=== PATIENT | female | born 1945 | race Caucasian/White ===

== ENCOUNTER 2016-08-10 11:59 | Observation (INO) | payer OTHER ==
[~2016-08-10 11:59] MED LIST: D 5000 PO; ELIQUIS 5 MG TAB5 MG PO; GLUCPH PO; HORMONE CREAM; HYDROCHLOROT25 MG PO; LEVOTHYROXIN50 MCG PO; LOP25 PO; MELATIN PO; OSTEO BI-FLEX1 EACH PO; ULTRAM50 PO; VITAMIN B-121000 MC1 SL; ZANTAC150 MG PO; ZESTRIL10 MG PO
[2016-08-10] MEDS ORDERED: RYTHMOL150 MG PO (12:56)
[2016-08-10] MEDS ORDERED: LIPITOR20 PO (13:00)
[2016-08-10] MEDS ORDERED: PRIN10 PO (13:01)
[2016-08-10] MEDS ORDERED: HYDROCHLOROT25 MG PO (13:03)
[2016-08-10] MEDS ORDERED: PRILO PO (13:05)
[2016-08-10] MEDS ORDERED: NORCO1 TA1 PO (13:07)
[2016-08-10] MEDS ORDERED: ENDOMETRIN100 MG TOP (13:13)
[2016-08-11 04:48] LABS: BASOPHILS 0.3 %; BASOPHILS ABSOLUTE 0.03 10/3/uL (0.0-0.16); EOSINOPHILS 0.8 %; HEMATOCRIT 33.4 % (36.0-48.0); HEMOGLOBIN 10.6 g/dL (12.0-16.0); IMMATURE GRANULOCYTES 0.3 %; IMMATURE GRANULOCYTES ABSOLUTE 0.03 10/3/uL (0.0-0.11); LYMPHOCYTES 21.2 %; LYMPHOCYTES ABSOLUTE 2.54 10/3/uL (0.67-4.30); MEAN CORPUS HGB CONC 31.7 g/dL (32.0-36.0); MEAN CORPUSCULAR HEMOGLOB 24.2 pg (26.0-34.0); MEAN PLATELET VOLUME 10.5 fL (9.2-13.0); MONOCYTES ABSOLUTE 1.08 10/3/uL (0.21-1.20); NEUTROPHILS 68.4 %; NEUTROPHILS ABSOLUTE 8.21 10/3/uL (2.02-8.40); PLATELET COUNT 253 10/3/uL (150-400); RBC DISTRIBUTION WIDTH 18.4 % (12.0-16.0); RED CELL COUNT 4.38 10/6/uL (4.0-5.6)
[2016-08-11 04:49] LABS: MANUAL DIFF NO %; MEAN CORPUSCULAR VOLUME 76.3 fL (80-100)
[2016-08-11 05:09] LABS: BUN (BLOOD UREA NITROGEN) 23 MG/DL (6-23); CHLORIDE, SERUM 107 MMOL/L (96-112); CO2 (CARBON DIOXIDE) 26 MMOL/L (24-34); CREATININE 1.02 MG/DL (0.55-1.02); GFR AFRICAN AMERICAN 65 ML/MIN (>=60); GFR NON AFRICAN AMERICAN 56 ML/MIN (>=60); GLUCOSE, SERUM 127 MG/DL (60-99); POTASSIUM, SERUM 4.1 MMOL/L (3.5-5.3); SODIUM, SERUM 141 MMOL/L (135-148)
== END 2016-08-12 14:59 | disposition home or self-care (01) ==
LOC: SSU1 11:59
PROVIDERS: Internal Medicine Clinical Cardiac Electrophysiology
DX: I48.92 Unspecified atrial flutter (principal); I10 Essential (primary) hypertension; E11.9 Type 2 diabetes mellitus without complications; E03.9 Hypothyroidism, unspecified; K21.9 Gastro-esophageal reflux disease without esophagitis; I48.0 Paroxysmal atrial fibrillation; Z90.49 Acquired absence of other specified parts of digestive tract; Z90.710 Acquired absence of both cervix and uterus; Z90.89 Acquired absence of other organs; Z79.899 Other long term (current) drug therapy; Z88.8 Allergy status to other drugs, medicaments and biological substances; Z82.49 Family history of ischemic heart disease and other diseases of the circulatory system; Z98.84 Bariatric surgery status; Z79.891 Long term (current) use of opiate analgesic
CPT/HCPCS: 71020; 80048; 82962; 83735; 83880; 85025; 85347; 85379; 93005; 93613; 93653; A9270-GY; C1732; C1769; C1781; C1893; C1894; G0378; J2250; J2370; J3010